=== PATIENT | female | born 1970 | race Hispanic/Latino ===

== ENCOUNTER 2017-04-16 14:56 | Outpatient (CLI) | payer BC, OTHER | END 2017-04-16 14:57 | disposition home or self-care (01) | LOC: LABHHL 14:56 | PROVIDERS: ATTEND Surgery | DX: N64.89 Other specified disorders of breast (principal); R92.0 Mammographic microcalcification found on diagnostic imaging of breast | CPT/HCPCS: 88305 ==

== ENCOUNTER 2017-08-25 11:08 | Outpatient (CLI) | payer BC ==
--- NOTE | 2017-08-25 11:40 | Mammography Report ---
LEFT DIGITAL DIAGNOSTIC MAMMOGRAM with CAD: 08/25/17 11:08:00 CLINICAL: Follow-up after benign stereotactic biopsy for calcifications. COMPARISON:04/01/17 FINDINGS: A biopsy clip with a small circumscribed density is identified in the inner breast at the site of stereotactic biopsy. A few residual calcifications are identified. No mass, architectural distortion or suspicious calcifications. IMPRESSION: No mammographic evidence of malignancy. BI-RADS CATEGORY: 2 -- Benign RECOMMENDATION: Return to routine mammographic screening. ACR BI-RADS MAMMOGRAPHIC CODES: 0 = Needs additional imaging evaluation; 1 = Negative; 2 = Benign; 3 = Probably benign; 4 = Suspicious; 5 = Malignant; 6 = Known biopsy-proven malignancy COMMENT: 1. Dense breast tissue, i.e., adenosis, fibrocystic changes, etc., may obscure an underlying neoplasm. 2. Approximately 10% of cancers are not detected with mammography. 3. A negative mammography report should not delay biopsy if a clinically suspicious mass is present. COMMENT: Patient follow-up letters are generated by our [employer] application.
== END 2017-08-25 11:09 | disposition home or self-care (01) ==
LOC: SPVWC 11:08
PROVIDERS: ATTEND Surgery
DX: R92.8 Other abnormal and inconclusive findings on diagnostic imaging of breast (principal); R92.1 Mammographic calcification found on diagnostic imaging of breast